=== PATIENT | male | born 1950 | race African-American/Black ===

== ENCOUNTER 2017-03-06 05:52 | Day surgery (SDC) | payer OTHER ==
[2017-03-05 14:29] VITALS: Ht 182.9 cm; Wt 77.8 kg
[~2017-03-06] VITALS: Ht 182.9 cm; Wt 77.8 kg
[2017-03-06] VITALS (16 sets, daily range): BP systolic 127–177; BP diastolic 58–89; PULSE 56–78; RESP 12–21
[~2017-03-06 05:52] MED LIST: CEFAZOLIN 2 GM/50 ML (PMX) 50 ML IVPB ONE; SOD CHLORIDE 0.9% 1,000 ML IV ONE
[2017-03-06] MEDS ORDERED: BUPIVACAINE 0.25% (MPF) 30 ML INJ ONE (06:46)
[2017-03-06] MEDS ORDERED: CEFAZOLIN 1 GM INJ ONE (07:00)
[2017-03-06] MEDS ORDERED: POLYMYXIN/BACITRACIN 1L IRRIG ONE (07:07)
[2017-03-06] MEDS ORDERED: LIDOCAINE 2% (SDV) 5 ML INJ ONE (07:42)
[2017-03-06] MEDS ORDERED: ROCURONIUM 50 MG INJ ONE (07:42)
[2017-03-06] MEDS ORDERED: MIDAZOLAM 1 MG/ML 2 ML INJ ONE (07:42)
[2017-03-06] MEDS ORDERED: SUCCINYLCHOLINE CHLORIDE 100 MG/5 ML SYG IV ONE (07:42)
[2017-03-06] MEDS ORDERED: PROPOFOL 20 ML ONE (07:42)
[2017-03-06] MEDS ORDERED: FENTAnyl 50 MCG/ML VIAL ONE (07:42)
[2017-03-06] MEDS ORDERED: AMLO5TAB4 PO (07:43)
[2017-03-06] MEDS ORDERED: APR50 PO (07:43)
[2017-03-06] MEDS ORDERED: GLYB5TAB3 PO (07:45)
[2017-03-06] MEDS ORDERED: TRAM50TA2 PO (07:45)
[2017-03-06] MEDS ORDERED: ASPI-664 PO (07:45)
[2017-03-06] MEDS ORDERED: HYDR-3010 PO (07:47)
[2017-03-06] MEDS ORDERED: LORA5SOL74 PO (07:47)
[2017-03-06] MEDS ORDERED: EPHEDrine SULFATE 50 MG/5 ML SYG ONE ×2 (07:59→08:01)
[2017-03-06] MEDS ORDERED: METOCLOPRAMIDE 10 MG INJ ONE (08:00)
[2017-03-06] MEDS ORDERED: ONDANSETRON 4 MG INJ ONE (08:00)
[2017-03-06] MEDS ORDERED: NEOSTIGMINE 3 MG/3 ML SYRINGE ONE (08:01)
[2017-03-06] MEDS ORDERED: GLYCOPYRROLATE 0.4 MG INJ ONE (08:01)
[2017-03-06] MEDS ORDERED: HYDROmorphONE 2 MG/ML SYG ONE (08:25)
[2017-03-06] MEDS ORDERED: OXYCODONE/ACETAMINOPHEN (5/325) TAB PO PRN (08:30)
[2017-03-06] MEDS ORDERED: HYDROmorphONE (0.2 MG/ML) 10ML SYG IV PRN (08:30)
[2017-03-06] MEDS ORDERED: MEPERIDINE 25 MG INJ IV PRN (08:30)
[2017-03-06] MEDS ORDERED: LABETALOL HCL 20MG INJ IV PRN (08:30)
[2017-03-06] MEDS ORDERED: FENTAnyl 50 MCG/ML VIAL IV PRN (08:30)
[2017-03-06] MEDS ORDERED: DIPHENHYDRAMINE 50 MG INJ IV PRN (08:30)
[2017-03-06] MEDS ORDERED: hydrALAzine 20 MG INJ IV PRN (08:30)
[2017-03-06] MEDS ORDERED: ONDANSETRON 4 MG INJ IV PRN (08:30)
--- NOTE | 2017-03-06 08:58 | OPR ---
DATE OF OPERATION: 03/06/2017 INDICATION: This is a 66-year-old male with a right inguinal hernia. He requests surgical repair. Risks, alternatives, benefits, and personnel were discussed with the patient. Patient expressed un derstanding and consents to the operation. PREOPERATIVE DIAGNOSIS: Right inguinal hernia. POSTOPERATIVE DIAGNOSIS: Right inguinal hernia. OPERATION: Open right inguinal hernia repair with large size Ultrapro hernia system mesh. SURGEON: Roger Roa MD SPECIMENS: None. COMPLICATIONS: None. ANESTHESIA: General. DESCRIPTION OF PROCEDURE: The patient was taken to the OR, prepped and draped in the usual sterile fashion. Surgical timeout was performed. IV antibiotics were given. Right inguinal oblique incisi on is made with a 10 blade. Dissection cautery was carried down to external oblique fascia which wa s opened with a 15 blade. This is incision is extended medial inferiorly and lateral superiorly wit h Metzenbaum scissors. Cord structures are encircled with a Araceli drain. A large indirect hernia was identified and reduced. Excess hernia sac is excised and the stump was suture ligated with 0 V icryl after examining the contents which were reduced. The disk portion of the Ultrapro hernia syst em mesh is was secured in place by running an 0 Prolene from the pubic tubercle along the shelving e dge of the inguinal ligament and superiorly to the internal oblique with interrupted 3-0 Vicryl. On lay mesh was secured in a similar fashion with a running 0 Prolene from the pubic tubercle along the shelving edge of the inguinal ligament. Straps are created and reapproximated with interrupted 0 P rolene to recreate the inguinal ring. Onlay mesh was secured to the internal oblique with interrupt ed 3-0 Vicryl. External oblique fascia was closed with running 3-0 Vicryl. Sindy's was closed wit h interrupted 3-0 Vicryl. Skin was closed using skin virgen. Local anesthesia was injected and dr martínez were applied. Dictated By: ROGER ROA MD SB/SIOBHAN Conf#: [id number] DID#: [id number]
[2017-03-06] MEDS ORDERED: HYDROCODONE/APAP (5/325) TAB PO ONE (09:00)
== END 2017-03-06 12:10 | disposition home or self-care (01) ==
LOC: SDS 05:52
PROVIDERS: ATTEND Surgery
DX: K40.90 Unilateral inguinal hernia, without obstruction or gangrene, not specified as recurrent (principal)
CPT/HCPCS: 49505; 82962; C1781; J0330; J0690; J1170; J2175; J2250; J2405; J2710; J2765; J3010; Z7512; Z7610